=== PATIENT | female | born 1975 | race Caucasian/White ===

== ENCOUNTER 2016-08-27 07:04 | Day surgery (SDC) | payer MEDICARE ==
[2014-07-27 08:14] VITALS: BMI 27.4
[2016-08-27] MEDS ORDERED: Propofol 10 mg/ml Inj (20 ML) ONE ×2 (07:52→08:16)
[2016-08-27] MEDS ORDERED: Midazolam 2 MG/2 ML VIAL ONE (07:53)
[2016-08-27 07:54] VITALS: O2SAT 100
[2016-08-27] MEDS ORDERED: Lactated Ringer's 1,000 ML IV ONE (08:00)
[2016-08-27] MEDS ORDERED: ceFAZolin IV 1 gm in Dextrose 1 GM/50 ML BAG IVPB ONE (08:11)
--- NOTE | 2016-08-27 08:36 | PCM.SURG1 ---
Surgeon's Initial Post Op Note - Surgeon's Notes Surgeon: dr seaman Informatics Developer: none Type of Anesthesia: General LMA Anesthesia Administered By: dr atkins Pre-Operative Diagnosis: 40 yr with menometorrhagia/r/o polyp Operative Findings: see the op report Post-Operative Diagnosis: myasure/d &c , hysterscopy Operation Performed: myasure , d &c , hysterscopy Specimen/Specimens Removed: ecc. emc. poylp Estimated Blood Loss: EBL {In ML}: 20 Drains Used: No Drains Post-Op Condition: Good Date of Surgery/Procedure: 08/27/16 Time of Surgery/Procedure: 08:30
--- NOTE | 2016-08-27 09:17 | OP ---
PROCEDURE DATE: 08/27/2016 PREOPERATIVE DIAGNOSES: A 40-year-old __2p2__ with menometrorrhagia, rule out endometrial polyp. POSTOPERATIVE DIAGNOSES: A 40-year-old _2p2___ with menometrorrhagia, rule out endometrial polyp. SURGEON: Surinder Jeffers MD HERPETOLOGY TEACHER: ___NONE_ ANESTHESIA: General. ANESTHESIOLOGIST: Dr. Dorsey. COMPLICATIONS: None. ESTIMATED BLOOD LOSS: 20 mL. PROCEDURE PERFORMED: MyoSure, D and C, hysteroscopy. PROCEDURE: After informed consent was obtained, the patient was brought to the operating room, placed on the table where general anesthesia was given. When anesthesia was found to be adequate, she was prepped and draped in normal sterile fashion. Examination found the uterus to be 10 weeks size, no adnexal masses. Anterior lip of the cervix was grasped with a tenaculum. Gentle dilatation of the cervix was done ____ was found to have polyp on the lower uterine part of the uterine segment. Pictures were taken. Then, the ____ decision was to do MyoSure. MyoSure was introduced and the polyp was removed, sent to pathology. After that MyoSure, the hysteroscope was then removed and then the sharp curettage from the ECC and the sharpy __fromALL__ palma of the uterus was done and sent to the pathology. DEFICIT 80 CC.After that, the patient tolerated the procedure well. The tenaculum was taken off the anterior lip of the cervix. The patient tolerated the procedure well. Laps, sponge, instruments correct x 2. Surinder Jeffers MD cc: [id number] TT: 08/27/2016 09:12:49 en MTDD
[2016-08-27 10:40] VITALS: BP 123/72; PULSE 73; RESP 15; TEMP 98.1
== END 2016-08-27 10:34 | disposition home or self-care (01) ==
LOC: C.SDS 07:04
PROVIDERS: ATTEND Obstetrics & Gynecology
DX: N84.0 Polyp of corpus uteri (principal); N92.1 Excessive and frequent menstruation with irregular cycle
CPT/HCPCS: 58558; 88305; J1885; J2001; J2250; J2405; J2704; J2765; J3010; J7120

== ENCOUNTER 2016-08-31 12:34 | Emergency (ER) | payer MEDICARE ==
[2016-08-31 12:34] VITALS: BMI 27.4
[2016-08-31 12:48] VITALS: O2SAT 98
[2016-08-31] MEDS ORDERED: Sodium Chloride 0.9% 1,000 ML IV ONE (13:18)
[2016-08-31 13:46] LABS: BASO # 0.1 K/uL (0.0-0.2); BASO % 0.7 % (0.0-2.0); EOS # 0.3 K/uL (0.0-0.7); EOS % 3.5 % (0.0-4.0); HEMATOCRIT 34.7 % (34.0-47.0); LYMPH # 2.4 K/uL (1.0-4.3); MEAN CELL VOLUME 85.4 fL (81.0-99.0); MEAN CORPUSCULAR HEMOGLOBIN 27.3 pg (27.0-31.0); MONO # 0.3 K/uL (0.0-0.8); MONO % 3.9 % (0.0-10.0); RED CELL DISTRIBUTION WIDTH 26.1 % (11.5-14.5); WHITE BLOOD COUNT 7.6 K/uL (4.8-10.8)
[2016-08-31 13:54] LABS: CHLORIDE 109 mmol/L (98-107); INR 0.9; POTASSIUM 4.5 mmol/L (3.6-5.2); SODIUM 139 mmol/L (132-148)
--- NOTE | 2016-08-31 13:55 | CP.PCM.CON ---
History of Present Illness - History of Present Illness History of Present Illness: 40 s/p d &c, hysterscopy on 08/27 came with c/o heavy vaginal bleeding started saturday and got heavier yesterday so came to er.pt states it was blod clots pouring down the vagina. obhx 2 x pmh den med septemberll fe all nkda psh gastric bypass soch den sse min bleeding h/h stable Review of Systems - Reproductive: Female Reproductive:Female: Abnormal Vaginal Bleeding Past Patient History - Past Medical History & Family History Past Medical History?: Yes - Past Social History Smoking Status: Never Smoked - CARDIAC Hx Cardiac Disorders: No - PULMONARY Hx Respiratory Disorders: No - NEUROLOGICAL Hx Neurological Disorder: No - HEENT Hx HEENT Problems: No - RENAL Hx Chronic Kidney Disease: No - ENDOCRINE/METABOLIC Hx Endocrine Disorders: No - HEMATOLOGICAL/ONCOLOGICAL Hx Anemia: Yes (Low HGB R/T heavy menses ) - INTEGUMENTARY Hx Dermatological Problems: No - MUSCULOSKELETAL/RHEUMATOLOGICAL Hx Musculoskeletal Disorders: No - GASTROINTESTINAL Hx Gastrointestinal Disorders: Yes Hx Ulcer: Yes - GENITOURINARY/GYNECOLOGICAL Hx Genitourinary Disorders: No - PSYCHIATRIC Hx Psychophysiologic Disorder: No Hx Substance Use: No - SURGICAL HISTORY Hx Surgeries: Yes Hx Gastric Bypass Surgery: Yes (2008) Hx Orthopedic Surgery: Yes (Tibia-fibula FX) - ANESTHESIA Hx Anesthesia: Yes Hx Anesthesia Reactions: No Hx Malignant Hyperthermia: No Meds Allergies/Adverse Reactions: Allergies Allergy/AdvReac Type Severity Reaction Status Date / Time No Known Allergies Allergy Verified 07/27/14 08:14 - Medications Medications: Current Medications Sodium Chloride (Sodium Chloride 0.9%) 1,000 mls @ 1,000 mls/hr IV .Q1H ONE Stop: 08/31/16 14:17 Last Admin: 08/31/16 13:35 Dose: 1,000 mls/hr Physical Exam - Exam External exam: NORMAL EXTERNAL EXAM Speculum exam: Vaginal Bleeding (min) Bimanual exam: NORMAL BIMANUAL EXAM Results - Vital Signs Recent Vital Signs: Last Vital Signs Temp 98.4 F 08/31/16 12:45 Pulse 65 08/31/16 12:45 Resp 15 08/31/16 12:45 BP 146/91 H 08/31/16 12:45 Pulse Ox 98 08/31/16 12:45 - Labs Result Diagrams: 08/31/16 13:36 Labs: Laboratory Results - last 24 hr 08/31/16 13:36 WBC 7.6 RBC 4.06 Hgb 11.1 Hct 34.7 MCV 85.4 MCH 27.3 MCHC 32.0 L RDW 26.1 H Plt Count 343 MPV 8.0 Neut % (Auto) 60.9 Lymph % (Auto) 31.0 [place] % (Auto) 3.9 Eos % (Auto) 3.5 Baso % (Auto) 0.7 Neut # 4.7 Lymph # 2.4 [place] # 0.3 Eos # 0.3 Baso # 0.1 Assessment & Plan - Assessment and Plan (Free Text) Assessment: 40 yr with AUB Plan: PLAN PROVERA 20 MG NOW AND 10 mg bid menstural calendar f/u inn office on saturday if heavy bleeeding come to er - Date & Time Date: 08/31/16 Time: 15:00
[2016-08-31 13:56] LABS: BILIRUBIN,TOTAL 0.4 mg/dL (0.2-1.3); GFR AFRICAN-AMERICAN > 60
[2016-08-31 13:57] LABS: ALB/GLOB RATIO 2.1 (1.0-2.1); ALKALINE PHOSPHATASE 52 U/L (38-126); ALT/SGPT 25 U/L (9-52); AST/SGOT 13 U/L (14-36); BLOOD UREA NITROGEN 8 mg/dL (7-17); CARBON DIOXIDE 17 mmol/L (22-30); GLUCOSE,RANDOM 91 mg/dL (65-105); TOTAL PROTEIN 6.7 g/dL (6.3-8.3)
[2016-08-31 13:58] LABS: CALCIUM 8.5 mg/dl (8.6-10.4)
[2016-08-31 14:09] LABS: RBC URINE 22 /hpf (0-3); URINE BILIRUBIN NEGATIVE (NEGATIVE); URINE BLOOD 3+ (NEGATIVE); URINE COLOR Straw (YELLOW); URINE GLUCOSE (UA) NORMAL (Normal); URINE KETONE NEGATIVE (NEGATIVE); URINE LEUKOCYTE ESTERASE NEG Leu/uL (Negative); URINE PROTEIN NEGATIVE (NEGATIVE); URINE UROBILINOGEN NORMAL mg/dL (0.2-1.0); WBC URINE 5 /hpf (0-5)
--- NOTE | 2016-08-31 14:13 | C.PDOC ---
History Of Present Illness 40 y/o female presents to the ED with complains of dysfunctional uterine bleeding after D&C [address] Joyner. Pt states bleeding is worse than prior to D&C. Pt instructed by Dr Joyner to come to ED for evaluation and for physician to consult her. Denies fever, chills, dizziness, abdominal pain or any other complaints. Time Seen by Provider: 08/31/16 13:14 Chief Complaint (Nursing): Female Genitourinary History Per: Patient History/Exam Limitations: no limitations Onset/Duration Of Symptoms: Days Current Symptoms Are (Timing): Still Present Severity: Moderate Alleviating Factors: None Recent travel outside of the [place]: No Abnormal Vaginal Bleeding: Yes Past Medical History Reviewed: Historical Data, Nursing Documentation, Vital Signs Vital Signs: Last Vital Signs Temp 98.4 F 08/31/16 12:45 Pulse 65 08/31/16 12:45 Resp 15 08/31/16 12:45 BP 146/91 H 08/31/16 12:45 Pulse Ox 98 08/31/16 14:13 - Medical History PMH: Anemia (Low HGB R/T heavy menses ) Surgical History: Endoscopy - [facility] Procedures ANESTH INJECT-SPIN CANAL (04/24/13) INJECT STEROID (04/24/13) OTHER ENDOSCOPY OF SM INTEST (07/27/14) SPINAL CANAL INJECT NEC (04/24/13) Family History: States: Unknown Family Hx - Social History Hx Tobacco Use: No Hx Alcohol Use: No Hx Substance Use: No - Immunization History Hx Tetanus Toxoid Vaccination: No Hx Influenza Vaccination: No Hx Pneumococcal Vaccination: No Review Of Systems Except As Marked, All Systems Reviewed And Found Negative. Constitutional: Negative for: Fever, Chills Gastrointestinal: Negative for: Vomiting, Abdominal Pain Genitourinary: Positive for: Vaginal Bleeding Neurological: Negative for: Weakness, Dizziness Physical Exam - Physical Exam Appears: Non-toxic, No Acute Distress Skin: Warm, Dry, No Rash Head: Atraumatic, Normacephalic Neck: Normal, Normal ROM, Supple Chest: Symmetrical Cardiovascular: Rhythm Regular, No Murmur Respiratory: Normal Breath Sounds, No Rales, No Rhonchi, No Wheezing Gastrointestinal/Abdominal: Soft, No Tenderness Extremity: Normal ROM Extremity: Bilateral: Atraumatic Neurological/Psych: Oriented x3, Normal Speech ED Course And Treatment - Laboratory Results Result Diagrams: 08/31/16 13:36 08/31/16 13:36 Lab Interpretation: Normal (stable after D/C 4 days ago) O2 Sat by Pulse Oximetry: 98 (room air) Pulse Ox Interpretation: Normal Reevaluation Time: 14:12 Reassessment Condition: Improved Medical Decision Making Medical Decision Making: DUB after D/C by Dr. Joyner 08/27. Evaled in ED by Dr. Joyner and ok for d/c. Started on Provera in ED Disposition Doctor Will See Patient In The: Office Counseled Patient/Family Regarding: Studies Performed, Diagnosis - Disposition Referrals: Surinder Joyner MD [Staff Provider] - Disposition: HOME/ ROUTINE Disposition Time: 14:13 Condition: GOOD Additional Instructions: continue provera 10 mg twice a day for 30 days Follow-up w Dr. Joyner as instructed. Hemoglobin level today 11.1 (normal) Prescriptions: MedroxyPROGESTERone [Provera] 1 tab PO BID #60 tab Instructions: Dysfunctional Uterine Bleeding (ED) - Clinical Impression Clinical Impression: DUB (dysfunctional uterine bleeding) - Scribe Statement The provider has reviewed the documentation as recorded by the Sofía jones Provider Attestation: All medical record entries made by the Diegoibkenneth were at my direction and personally dictated by me. I have reviewed the chart and agree that the record accurately reflects my personal performance of the history, physical exam, medical decision making, and the department course for this patient. I have also personally directed, reviewed, and agree with the discharge instructions and disposition.
[2016-08-31 14:25] VITALS: BP 138/84; PULSE 71; RESP 16; TEMP 97.9
== END 2016-08-31 14:25 | disposition home or self-care (01) ==
LOC: C.ER 12:34
DX: N93.8 Other specified abnormal uterine and vaginal bleeding (principal)
CPT/HCPCS: 80053; 81001; 84703; 85025; 85610; 85730; 96360; 99284; J7040

== ENCOUNTER 2016-09-18 11:00 | Inpatient (IN) | payer MEDICARE ==
[2016-11-20] MEDS ORDERED: Propofol 10 mg/ml Inj (20 ML) ONE (07:20)
[2016-11-20] MEDS ORDERED: cefOXitin IV 2 gm in Dextrose 2 GM/50 ML BAG IVPB ONE (07:21)
[2016-11-20] MEDS ORDERED: Rocuronium 10 mg/ml (5 ml) ONE (07:21)
[2016-11-20] MEDS ORDERED: Succinylcholine Chloride 20 mg/ml Syr (5 ml) IV ONE (07:28)
[2016-11-20] MEDS ORDERED: Lidocaine Hydrochloride 5 ML INJ ONE (07:29)
[2016-11-20] MEDS ORDERED: Midazolam 2 MG/2 ML VIAL ONE (07:29)
[2016-11-20] MEDS ORDERED: Oxycodone/Acetaminophen 5/325 mg Tab PO PRN (07:44)
[2016-11-20] MEDS ORDERED: Morphine 4 MG/ML VIAL ONE ×2 (07:44→09:16)
[2016-11-20] MEDS ORDERED: Lactated Ringer's 1,000 ML IV SCH (07:45)
[2016-11-20] MEDS ORDERED: Lactated Ringer's 1,000 ML IV ONE ×3 (07:45→09:38)
[2016-11-20] MEDS ORDERED: cefOXitin IV 2 gm in Dextrose 2 GM/50 ML BAG IVPB SCH (07:45)
[2016-11-20] MEDS ORDERED: ceFAZolin IV 1 gm in Dextrose 2 GM/100 ML BAG IVPB ONE (08:00)
[2016-11-20] MEDS ORDERED: Neostigmine Methylsulfate 3mg/3ml Syringe IV ONE (09:03)
--- NOTE | 2016-11-20 09:50 | PCM.SURG1 ---
Surgeon's Initial Post Op Note - Surgeon's Notes Surgeon: dr seaman Silvering Applicator: dr rushing/dr reynoso Type of Anesthesia: General Endo Anesthesia Administered By: dr marie Pre-Operative Diagnosis: 41 yr abnormal uterine bleeding s/p failed medical management Operative Findings: see the op report Post-Operative Diagnosis: same Operation Performed: total hystrectomy/b/l salpingectomy Specimen/Specimens Removed: uterus. cervix. portion of tube both Estimated Blood Loss: EBL {In ML}: 200 Blood Products Given: N/A Drains Used: No Drains Post-Op Condition: Good Date of Surgery/Procedure: 11/20/16 Time of Surgery/Procedure: 10:00
[2016-11-20] MEDS: HYDROmorphone 0.5 mg/0.5 ml ISec IVP PRN ×5 (10:03→12:30)
[2016-11-20] MEDS: Simethicone 80 mg Chewtab PO SCH ×2 (18:01→21:32)
[2016-11-20] MEDS: cefOXitin IV 2 gm in Dextrose 2 GM/50 ML BAG IVPB SCH (20:09)
[2016-11-20] MEDS: Oxycodone/Acetaminophen 5/325 mg Tab PO PRN (22:30)
[2016-11-21] MEDS: Oxycodone/Acetaminophen 5/325 mg Tab PO PRN ×4 (02:28→21:27)
[2016-11-21] MEDS: cefOXitin IV 2 gm in Dextrose 2 GM/50 ML BAG IVPB SCH (03:31)
[2016-11-21 07:58] LABS: CHLORIDE 101 mmol/L (98-107)
[2016-11-21 07:59] LABS: SODIUM 135 mmol/L (132-148)
[2016-11-21 08:01] LABS: CARBON DIOXIDE 24 mmol/L (22-30); GFR AFRICAN-AMERICAN > 60
[2016-11-21 08:02] LABS: ALB/GLOB RATIO 1.3 (1.0-2.1); ALKALINE PHOSPHATASE 54 U/L (38-126); ALT/SGPT 30 U/L (9-52); AST/SGOT 20 U/L (14-36); BILIRUBIN,TOTAL 0.7 mg/dL (0.2-1.3); BLOOD UREA NITROGEN 6 mg/dL (7-17); CALCIUM 8.9 mg/dl (8.6-10.4); GLUCOSE,RANDOM 114 mg/dL (65-105); TOTAL PROTEIN 6.5 g/dL (6.3-8.3)
[2016-11-21 08:17] LABS: BASO % 0.1 % (0.0-2.0); HEMATOCRIT 33.2 % (34.0-47.0); LYMPH # 0.7 K/uL (1.0-4.3); LYMPH % 7.4 % (20.0-40.0); MEAN CORPUSCULAR HEMOGLOBIN 30.7 pg (27.0-31.0); MEAN PLATELET VOLUME 8.8 fL (7.2-11.7); MONO # 0.5 K/uL (0.0-0.8); MONO % 5.1 % (0.0-10.0); PLATELET COUNT 284 K/uL (130-400); RED CELL DISTRIBUTION WIDTH 13.1 % (11.5-14.5); WHITE BLOOD COUNT 10.1 K/uL (4.8-10.8)
[2016-11-21 08:18] LABS: MEAN CELL VOLUME 90.3 fL (81.0-99.0)
[2016-11-21] MEDS: Simethicone 80 mg Chewtab PO SCH ×4 (09:36→21:27)
[2016-11-21] MEDS ORDERED: Bisacodyl 5mg EC Tab PO ONE (10:00)
[2016-11-21 10:07] LABS: BASOPHIL 1 % (0-2); NEUTROPHIL 86 % (50-75); REACTIVE LYMPHOCYTES 2 % (0-0); TOTAL CELLS COUNTED 100
--- NOTE | 2016-11-21 11:36 | CP.PCM.PN ---
Subjective - Date & Time of Evaluation Date of Evaluation: 11/21/16 Time of Evaluation: 11:40 - Subjective Subjective: pt was seen AT bed side. c/o pain . percocet not helping, no n/v, tolerating liquid deit, voiding, no vb, flatus+ abd soft, mild ten incision clean and dry ext no edema,no calf ten Objective - Vital Signs/Intake and Output Vital Signs (last 24 hours): Temp Pulse Resp BP Pulse Ox 99.1 F 84 18 131/83 99 11/21/16 08:00 11/21/16 08:00 11/21/16 08:00 11/21/16 08:00 11/21/16 08:00 Intake and Output: 11/21/16 11/21/16 06:59 18:59 Intake Total 1620 Output Total 1700 Balance -80 - Medications Medications: Current Medications Docusate Sodium (Colace) 100 mg PO BID [facility] Last Admin: 11/21/16 09:37 Dose: 100 mg Ferrous Sulfate (Feosol) 325 mg PO DAILY [facility] Last Admin: 11/21/16 09:35 Dose: 325 mg Hydromorphone/Sodium Chloride (Dilaudid Yarn Inspector) 4 mg IV Q4H PRN; Protocol PRN Reason: Pain, severe (8-10) Last Admin: 11/20/16 13:45 Dose: 4 mg Lactated Ringer's (Lactated Ringer's) 1,000 mls @ 125 mls/hr IV .Q8H [facility] Ibuprofen (Motrin Tab) 600 mg PO Q4 PRN PRN Reason: Pain, Mild (1-3) Last Admin: 11/21/16 05:33 Dose: 600 mg Ketorolac Tromethamine (Toradol) 30 mg IVP Q6 PRN PRN Reason: Pain, severe (8-10) Ondansetron HCl (Zofran Inj) 4 mg IVP ONCE PRN PRN Reason: Nausea/Vomiting Oxycodone/Acetaminophen (Percocet 5/325 Mg Tab) 2 tab PO Q4H PRN PRN Reason: Pain, severe (8-10) Stop: 11/23/16 07:45 Last Admin: 11/21/16 09:38 Dose: 2 tab Oxycodone/Acetaminophen (Percocet 5/325 Mg Tab) 1 tab PO Q4H PRN PRN Reason: Pain, moderate (4-7) Stop: 11/23/16 07:45 Simethicone (Mylicon Chew Tab) 80 mg PO QID [facility] Last Admin: 11/21/16 09:36 Dose: 80 mg - Labs Labs: 11/21/16 07:45 11/21/16 07:45 Assessment and Plan - Assessment and Plan (Free Text) Assessment: 41 yr s/p MCKINLEY/b/l salpingectomy Plan: toradol prn encourage ambulation cont pain management cont post op care
[2016-11-22] MEDS: Oxycodone/Acetaminophen 5/325 mg Tab PO PRN ×6 (01:39→22:22)
--- NOTE | 2016-11-22 09:11 | CP.PCM.PN ---
Subjective - Date & Time of Evaluation Date of Evaluation: 11/22/16 Time of Evaluation: 08:50 - Subjective Subjective: Brendon Mcginnis PGY1, ObGyn service pt was seen and examined bedside. complains of pain with meds only mildly helping, no n/v, tolerating regular diet. Objective - Vital Signs/Intake and Output Vital Signs (last 24 hours): Temp Pulse Resp BP Pulse Ox 98.6 F 72 18 135/78 98 11/22/16 08:00 11/22/16 08:00 11/22/16 08:00 11/22/16 08:00 11/22/16 08:00 - Medications Medications: Current Medications Docusate Sodium (Colace) 100 mg PO BID [facility] Last Admin: 11/21/16 17:36 Dose: 100 mg Ferrous Sulfate (Feosol) 325 mg PO DAILY [facility] Last Admin: 11/21/16 09:35 Dose: 325 mg Hydromorphone/Sodium Chloride (Dilaudid Jig Borer) 4 mg IV Q4H PRN; Protocol PRN Reason: Pain, severe (8-10) Last Admin: 11/20/16 13:45 Dose: 4 mg Lactated Ringer's (Lactated Ringer's) 1,000 mls @ 125 mls/hr IV .Q8H [facility] Ibuprofen (Motrin Tab) 600 mg PO Q4 PRN PRN Reason: Pain, Mild (1-3) Last Admin: 11/21/16 16:13 Dose: 600 mg Ketorolac Tromethamine (Toradol) 30 mg IVP Q6 PRN PRN Reason: Pain, severe (8-10) Last Admin: 11/21/16 17:38 Dose: 30 mg Ondansetron HCl (Zofran Inj) 4 mg IVP ONCE PRN PRN Reason: Nausea/Vomiting Oxycodone/Acetaminophen (Percocet 5/325 Mg Tab) 2 tab PO Q4H PRN PRN Reason: Pain, severe (8-10) Stop: 11/23/16 07:45 Last Admin: 11/22/16 05:30 Dose: 2 tab Oxycodone/Acetaminophen (Percocet 5/325 Mg Tab) 1 tab PO Q4H PRN PRN Reason: Pain, moderate (4-7) Stop: 11/23/16 07:45 Last Admin: 11/21/16 14:48 Dose: 1 tab Simethicone (Mylicon Chew Tab) 80 mg PO QID [facility] Last Admin: 11/21/16 21:27 Dose: 80 mg - Labs Labs: 11/21/16 07:45 11/21/16 07:45 - Constitutional Appears: Well, Non-toxic, No Acute Distress - Head Exam Head Exam: ATRAUMATIC, NORMAL INSPECTION, NORMOCEPHALIC - Eye Exam Eye Exam: EOMI, Normal appearance, PERRL - ENT Exam ENT Exam: Mucous Membranes Moist, Normal Exam - Respiratory Exam Respiratory Exam: Clear to Ausculation Bilateral, NORMAL BREATHING PATTERN. absent: Accessory Muscle Use - Cardiovascular Exam Cardiovascular Exam: RRR, +S1, +S2 - GI/Abdominal Exam GI & Abdominal Exam: Soft, Tenderness (mild around incision site), Normal Bowel Sounds Additional comments: horizontal pubic incision site clean, dry, intact - Neurological Exam Neurological Exam: Alert, Awake, Oriented x3 - Psychiatric Exam Psychiatric exam: Normal Affect, Normal Mood - Skin Skin Exam: Normal Color, Warm Assessment and Plan - Assessment and Plan (Free Text) Assessment: 41F with abnormal uterine bleeding s/p Total Hysterectomy with B/L salpingectomy on 11/20/16 Plan: pain management - Toradol PRN, Percocet PRN encourage ambulation Zofran PRN Brendon Mcginnis PGY1 ObGyn service
[2016-11-22] MEDS: Simethicone 80 mg Chewtab PO SCH ×4 (09:12→21:39)
[2016-11-22 16:59] VITALS: RESP 20
[2016-11-22 20:24] VITALS: BP 126/82; PULSE 74; TEMP 99.1; O2SAT 97
[2016-11-23] MEDS: Oxycodone/Acetaminophen 5/325 mg Tab PO PRN ×2 (02:36→06:39)
--- NOTE | 2016-11-23 09:50 | CP.PCM.DIS ---
Provider - Provider Date of Admission: 11/20/16 06:29 Attending physician: Surinder Jeffers MD Time Spent in preparation of Discharge (in minutes): 45 Hospital Course - Lab Results Lab Results: Most Recent Lab Values WBC 10.1 K/uL (4.8-10.8) 11/21/16 07:45 RBC 3.68 Mil/uL (3.80-5.20) L 11/21/16 07:45 Hgb 11.3 g/dL (11.0-16.0) 11/21/16 07:45 Hct 33.2 % (34.0-47.0) L 11/21/16 07:45 MCV 90.3 fL (81.0-99.0) D 11/21/16 07:45 MCH 30.7 pg (27.0-31.0) 11/21/16 07:45 MCHC 34.0 g/dL (33.0-37.0) 11/21/16 07:45 RDW 13.1 % (11.5-14.5) 11/21/16 07:45 Plt Count 284 K/uL (130-400) 11/21/16 07:45 MPV 8.8 fL (7.2-11.7) 11/21/16 07:45 Neut % (Auto) 87.4 % (50.0-75.0) H 11/21/16 07:45 Lymph % (Auto) 7.4 % (20.0-40.0) L 11/21/16 07:45 [place] % (Auto) 5.1 % (0.0-10.0) 11/21/16 07:45 Eos % (Auto) 0.0 % (0.0-4.0) 11/21/16 07:45 Baso % (Auto) 0.1 % (0.0-2.0) 11/21/16 07:45 Neut # 8.8 K/uL (1.8-7.0) H 11/21/16 07:45 Lymph # 0.7 K/uL (1.0-4.3) L 11/21/16 07:45 [place] # 0.5 K/uL (0.0-0.8) 11/21/16 07:45 Eos # 0.0 K/uL (0.0-0.7) 11/21/16 07:45 Baso # 0.0 K/uL (0.0-0.2) 11/21/16 07:45 Neutrophils % (Manual) 86 % (50-75) H 11/21/16 07:45 Band Neutrophils % 1 % (0-2) 11/21/16 07:45 Lymphocytes % (Manual) 8 % (20-40) L 11/21/16 07:45 Reactive Lymphs % 2 % (0-0) H 11/21/16 07:45 Monocytes % (Manual) 2 % (0-10) 11/21/16 07:45 Basophils % (Manual) 1 % (0-2) 11/21/16 07:45 Platelet Estimate Normal (NORMAL) 11/21/16 07:45 Ovalocytes Slight 11/21/16 07:45 Sodium 135 mmol/L (132-148) 11/21/16 07:45 Potassium 4.0 mmol/L (3.6-5.2) 11/21/16 07:45 Chloride 101 mmol/L (98-107) 11/21/16 07:45 Carbon Dioxide 24 mmol/L (22-30) 11/21/16 07:45 Anion Gap 14 (10-20) 11/21/16 07:45 BUN 6 mg/dL (7-17) L 11/21/16 07:45 Creatinine 0.5 MG/DL (0.7-1.2) L 11/21/16 07:45 Est GFR ( Amer) > 60 11/21/16 07:45 Est GFR (Non-Af Amer) > 60 11/21/16 07:45 Random Glucose 114 mg/dL (65-105) H 11/21/16 07:45 Calcium 8.9 mg/dl (8.6-10.4) 11/21/16 07:45 Total Bilirubin 0.7 mg/dL (0.2-1.3) 11/21/16 07:45 AST 20 U/L (14-36) 11/21/16 07:45 ALT 30 U/L (9-52) 11/21/16 07:45 Alkaline Phosphatase 54 U/L (38-126) 11/21/16 07:45 Total Protein 6.5 g/dL (6.3-8.3) 11/21/16 07:45 Albumin 3.7 g/dL (3.5-5.0) 11/21/16 07:45 Globulin 2.8 gm/dL (2.2-3.9) 11/21/16 07:45 Albumin/Globulin Ratio 1.3 (1.0-2.1) 11/21/16 07:45 Blood Type O POSITIVE 11/20/16 07:21 Antibody Screen Negative 11/20/16 07:21 - Hospital Course Hospital Course: Ms. Dorantes is a 41yo w/ PSH D&C Hysterescopy and gastric bypass presented with abnormal uterine bleeding s/p failed medical management for Total abdominal hysterectomy and B/L salpingectomy for fibroid uterus. Pt went to OR on 11/20/16 and surgery was under general anesthesia and uncomplicated, done by Dr. Jeffers, assisted by Dr. rushing and Dr. White. Pt was transferred to the ObGyn service floors for recovery and post-op management. Pt remained afebrile throughout stay, and vitals were stable. Pain was managed by Dilaudid, Toradol, Percocet and Motrin PRN. Pt had a BM, and denies n/v/d, constipation, fevers or any severe abdominal bleeding. Pt is ambulating and denies any dizziness, or pedal edema/calf tenderness. Pt is instructed to f/u Dr. Jeffers on 12/05/16 and refrain from heavy lifting or sexual activity for 6 weeks. Prescribed Percocet and Motrin PRN for pain and educated on proper care for her incision. - Date & Time of H&P Date of H&P: 11/20/16 Time of H&P: 09:45 Discharge Exam - Head Exam Head Exam: ATRAUMATIC, NORMAL INSPECTION, NORMOCEPHALIC - Eye Exam Eye Exam: EOMI, Normal appearance - ENT Exam ENT Exam: Mucous Membranes Moist - Respiratory Exam Respiratory Exam: NORMAL BREATHING PATTERN, UNREMARKABLE. absent: Accessory Muscle Use, Respiratory Distress - Cardiovascular Exam Cardiovascular Exam: RRR. absent: JVD - GI/Abdominal Exam GI & Abdominal Exam: Normal Bowel Sounds, Soft. absent: Tenderness Additional comments: horizontal pubic incision site clean, dry, intact. - Neurological Exam Neurological exam: Alert, Oriented x3 - Skin Skin Exam: Normal Color, Warm Discharge Plan - Discharge Medications Prescriptions: Ibuprofen [Motrin Tab] 600 mg PO Q4 PRN #30 tab PRN Reason: Pain, Mild (1-3) oxyCODONE/Acetaminophen [Percocet 5/325 mg Tab] 1 ea PO Q6 PRN #20 tab PRN Reason: Pain, Moderate (4-7) - Follow Up Plan Condition: GOOD Disposition: HOME/ ROUTINE Additional Instructions: 1. Please follow-up with Dr. Jeffers in clinic on 12/05 2. Please refrain from any heavy lifting or sexual activity for 6 weeks 3. You are allowed to shower and pat dry the area of the incision, but try to not scrub too hard or apply moisturizer/creams to the area 4. You are prescribed medications for pain. Take as prescribed only if needed 5. If you experience any severe abdominal pain, abnormal bleeding, or difficulty passing stools, please go to the ER for further workup Thank you Brendon Mcginnis PGY1 Dr. Jeffers, Attending Physician
[2016-11-23] MEDS: Simethicone 80 mg Chewtab PO SCH (10:37)
--- NOTE | 2016-11-23 14:21 | CP.PCM.PN ---
Subjective - Date & Time of Evaluation Date of Evaluation: 11/23/16 Time of Evaluation: 09:00 - Subjective Subjective: Pt was seen and examined bedside. pt is ambulating and denies any dizziness, fever, or pedal edema/calf tenderness. Pt had a BM, and denies n/v/d, constipation or any severe abdominal bleeding. Objective - Vital Signs/Intake and Output Vital Signs (last 24 hours): Temp Pulse Resp BP Pulse Ox 99.1 F 74 20 126/82 97 11/22/16 20:00 11/22/16 20:00 11/22/16 20:00 11/22/16 20:00 11/22/16 20:00 - Medications Medications: Current Medications Docusate Sodium (Colace) 100 mg PO BID [facility] Last Admin: 11/23/16 10:38 Dose: 100 mg Ferrous Sulfate (Feosol) 325 mg PO DAILY [facility] Last Admin: 11/23/16 10:37 Dose: 325 mg Ibuprofen (Motrin Tab) 600 mg PO Q4 PRN PRN Reason: Pain, Mild (1-3) Last Admin: 11/21/16 16:13 Dose: 600 mg Ondansetron HCl (Zofran Inj) 4 mg IVP ONCE PRN PRN Reason: Nausea/Vomiting Simethicone (Mylicon Chew Tab) 80 mg PO QID [facility] Last Admin: 11/23/16 10:37 Dose: 80 mg - Labs Labs: 11/21/16 07:45 11/21/16 07:45 - Additional Findings Additional findings: - Head Exam Head Exam: ATRAUMATIC, NORMAL INSPECTION, NORMOCEPHALIC - Eye Exam Eye Exam: EOMI, Normal appearance - ENT Exam ENT Exam: Mucous Membranes Moist - Respiratory Exam Respiratory Exam: NORMAL BREATHING PATTERN, UNREMARKABLE. absent: Accessory Muscle Use, Respiratory Distress - Cardiovascular Exam Cardiovascular Exam: RRR. absent: JVD - GI/Abdominal Exam GI & Abdominal Exam: Normal Bowel Sounds, Soft. absent: Tenderness Additional comments: horizontal pubic incision site clean, dry, intact. - Neurological Exam Neurological exam: Alert, Oriented x3 - Skin Skin Exam: Normal Color, Warm Assessment and Plan - Assessment and Plan (Free Text) Assessment: 41yo w/ PSH D&C Hysterescopy and gastric bypass presented with abnormal uterine bleeding s/p failed medical management for Total abdominal hysterectomy and B/L salpingectomy for fibroid uterus. Pt went to OR on 11/20/16, POD3 on ObGyn service Plan: Pt to be d/c Pt is instructed to f/u Dr. Jeffers on 12/05/16 and refrain from heavy lifting or sexual activity for 6 weeks Prescribed Percocet and Motrin PRN for pain and educated on proper care for her incision
--- NOTE | 2016-11-26 09:36 | OP ---
PROCEDURE DATE: 11/20/2016 PREOPERATIVE DIAGNOSES: This 41 years old 2, para 2 with abnormal uterine bleeding, status post failed medical and surgical management. POSTOPERATIVE DIAGNOSES: This 41 years old 2, para 2 with abnormal uterine bleeding, status post failed medical and surgical management. SURGEON: Surinder Jeffers MD. DRIVE TESTER SURGEON: Dr. White, who was present throughout the surgery and Dr. White was there to help out. ANESTHESIA: General anesthesia. ANESTHESIOLOGIST: Dr. Esparza. ESTIMATED BLOOD LOSS: 200 mL. OPERATION PERFORMED: Total abdominal hysterectomy and bilateral salpingectomy. COMPLICATIONS: None. DESCRIPTION OF THE PROCEDURE: After informed consent was obtained, the patient was brought to the operating room, placed on the table where general anesthesia was given. When anesthesia was found to be sufficient, she was prepped and draped in normal sterile fashion. A Newman catheter was then inserted under sterile condition. A 2 cm above the pubic bone, a skin incision was made with a knife, the subcutaneous cut with a Bovie. The fascia was then excised on both the sides using curved Matthews scissors. The fascia was from the site of the pubic bone and at the side of the umbilicus. Rectus muscle was and was excised. The ovaries were visualized and normal. The uterus was remove the bowel. After that Ochsner retractor was placed. After that, was used to lift the uterus out. After that, the round ligament on left side was taken with the LigaSure, then a window was made in the broad ligament. After that, the right utero-ovarian ligament was taken. After that, the bladder flap was created on the right side, then the same thing was done on the left side. LigaSure was used, then after that a Elham clamp was placed on the uterus and Mitch was placed and the uterine artery on the right side was taken and a stitch was placed and the same thing was done on the left side. The bladder was pulled down completely and then the peritoneum on the back side was pulled down too. After that, the cardinal ligament was taken on the left side with the Mitch and it was cut and sutured ligated. The same thing was done on the left side. Then after that one more uterocervical ligament was taken with the Mitch, it was held up on the Allis. After that, when we were at the edge of the vagina and there is a combination of the vagina and the cervix, the incision was made with the scissors. Before that, we put the Zeppelin on both the sides. After that, the total hysterectomy was performed. The uterus and cervix was given for the pathology. The vaginal wall was held up with the Allis. After that, it was closed using 2-0 Vicryl in interrupted fashion. The stitches which were held up was tied up together. It was hemostatic. No bleeding. After that, decision was made to do bilateral salpingectomy. bilateral salpingectomy. Lot of irrigation was done, the wound was hemostatic. It was not bleeding. Then Interceed was placed. Lot of irrigation was done. After that closed. The fascia was closed using 2-0 Vicryl in running nonlocking fashion. Muscle layer closed with 2-0 Vicryl nonlocking fashion. The fascia was closed with #1 Vicryl running nonlocking fashion. Subcutaneous was closed with 0 Vicryl in interrupted fashion. Skin was closed using 3-0 Monocryl straight needle. The patient tolerated the procedure well. Lap, sponge, and instrument counts were correct x2. Surinder Jeffers MD
== END 2016-11-23 09:00 | disposition home or self-care (01) | DRG 743 ==
LOC: C.9S 11-20 06:29 → C.4M 11-20 17:53
PROVIDERS: ADMIT Obstetrics & Gynecology; ATTEND Obstetrics & Gynecology
PROC: 0UTC0ZZ Resection of Cervix, Open Approach (ICD-10-PCS; 2016-11-20)
PROC: 0UT70ZZ Resection of Bilateral Fallopian Tubes, Open Approach (ICD-10-PCS; 2016-11-20)
PROC: 0UT90ZZ Resection of Uterus, Open Approach (ICD-10-PCS; principal; 2016-11-20 07:30)
DX: D25.1 Intramural leiomyoma of uterus (principal); N93.8 Other specified abnormal uterine and vaginal bleeding; Z98.84 Bariatric surgery status